=== PATIENT | male | born 1985 | race African-American/Black ===

== ENCOUNTER 2016-07-12 09:33 | Emergency (ER) | payer SELFPAY ==
[~2016-07-12] VITALS: Ht 195.6 cm; Wt 126.1 kg
[2016-07-12 10:41] VITALS: BP 146/97
== END 2016-07-12 10:44 | disposition home or self-care (01) ==
LOC: EME 09:33
DX: R51 Headache (principal); R11.2 Nausea with vomiting, unspecified; Z87.891 Personal history of nicotine dependence
CPT/HCPCS: 99281; 99283